=== PATIENT | male | born 1950 | race Caucasian/White ===

== ENCOUNTER 2022-04-29 14:39 | Emergency (ER) | payer OTHER, SELFPAY ==
[2022-04-29 14:45] VITALS: BP 138/73; PULSE 87; RESP 18; TEMP 36.8; O2SAT 98
--- NOTE | 2022-04-29 15:00 | DI.CT_ITS ---
Exam(s) CT ABDOMEN PELVIS W EXAM: CT ABDOMEN PELVIS W CLINICAL HISTORY: left lower abdomen pain. TECHNIQUE: Imaging Protocol: Axial computed tomography images with coronal and sagittal reformatted images were created and reviewed CONTRAST MATERIAL: Intravenous: Omnipaque 100cc Oral: None COMPARISON: CT ABD PELVIS WO CONTRAST from 08/24/2017 FINDINGS: VISUALIZED LUNG BASES: Mild increased markings. No confluent infiltrates and no pleural effusions.. ABDOMEN: There is no ascites in the upper abdomen. LIVER: There are no focal hepatic lesions evident . GALLBLADDER/BILIARY: No obvious gallbladder pathology. CBD is not dilated. PANCREAS: No evidence of pancreatic mass nor dilatation of the pancreatic duct. SPLEEN: Spleen is not enlarged. No obvious intrasplenic lesions. Splenic and portal veins are paten t. ADRENALS: There is nodular density at the genu of the left adrenal gland which measures 2 by 1.3 cm, most probably benign adenoma as it appears unchanged from prior CT scan of 2018. The opposite-right adrenal gland remains unremarkable. KIDNEYS:Bilateral benign cysts in both kidneys are again noted and the largest cyst is again noted to be in the inferior pole the left kidney, measuring 5.7 x 5.6 cm. The largest cyst in the right kidn ey is in the superior pole and measures 3.3 x 3.3 cm. There are no solid renal masses. No calculi. No hydronephrosis nor hydroureter. ABDOMINAL AORTA: Calcified but not enlarged. LYMPH NODES:There is no retroperitoneal nor paraaortic adenopathy. ABDOMINAL WALL: No evidence of significant anterior abdominal wall nor inguinal hernia. GI: There is circumferential edema thickening of the colon wall at and distal to the splenic flexure. There also multiple diverticuli in the descending colon and extensive diverticulosis of the sigmoid is again noted. There is some streaking around some of the diverticuli although there is also some streaking around the entire involved left side of the colon. Small amount of fluid noted in the pelv ic mesentery and dependent aspect of the pelvis. PELVIS: GI: Appendix is difficult to identify. No obvious acute appendicitis. LYMPH NODES: There is no intrapelvic nor inguinal adenopathy. REPRODUCTIVE: Enlarged prostate gland which exhibits diameter 5 cm. URINARY BLADDER: Not distended. Thickened wall which is probably related to under distension. OSSEOUS: No significant osseous lesions. IMPRESSION: 1. Compared to the prior CT scan of August 2017 there is diverticulosis of the entire left side of the colon again noted, most extensive in the sigmoid. However, on the present study there is also ci rcumferential thickening of the colon wall at and distal to the splenic flexure consistent with eleme nt of colitis and there is streaking around the entire length of the colon and AC well as around some the diverticuli. Probably a combination of colitis and diverticulitis. There is small amount of fr ee fluid in the dependent pelvis which is probably related to the above findings but there does not a ppear to be a formed abscess. Also no air within the portal venous system. 2. Multiple benign cysts in both kidneys. No solid renal masses. No calculi. 3. Left adrenal nodule, unchanged from 2018 and probably a benign adenoma. 4. Other findings as above. Discussed with ER physician. RADIATION DOSE DELIVERED: 761.22mGy.cm Total DLP DATA REPOSITORY: All CT scans at this facility are submitted to the National Radiology Data Registry (NRDR) Dose Index Registry (DIR) with the [employer] ([employer]). RADIATION OPTIMIZATION: All CT scans at this facility use at least one of these dose optimization te chniques: automated exposure control; mA and/or kV adjustment per patient size (includes targeted exa ms where dose is matched to clinical indication); or iterative reconstruction.
--- NOTE | 2022-04-29 15:10 | W.ED.GENAD ---
Discharge Plan Disposition Patient Disposition: HOME Condition: Stable Discharge Details Clinical Impression: Diverticulitis Primary Care Provider: [facility] Provider: Chinmay Gee Home Meds and New Rx's Prescriptions: New metronidazole 500 mg tablet 500 mg PO Q8H Qty: 21 0RF ciprofloxacin HCl 500 mg tablet 500 mg PO BID Qty: 14 0RF Continued atorvastatin [Lipitor] 80 MG tablet 80 mg PO DAILY clopidogrel [Plavix] 75 MG tablet 75 mg PO DAILY amlodipine 5 MG tablet 5 mg PO DAILY metformin 500 MG tablet extended release 24 hr 500 mg PO DAILY omeprazole magnesium [Prilosec OTC] 20 MG tablet,delayed release (DR/EC) 20 mg PO DAILY cholecalciferol (vitamin D3) [Vitamin D3] 2,000 UNIT tablet 2,000 unit PO DAILY aspirin 325 MG tablet 325 mg PO PRN tamsulosin 0.4 MG capsule 0.4 mg PO DAILY@0830 Qty: 5 0RF promethazine 25 MG tablet 25 mg PO Q6H PRN (Reason: Nausea) Qty: 10 0RF Discontinued ciprofloxacin HCl 500 MG tablet 500 mg PO BID Qty: 6 0RF Discharge Instructions Instructions: Diverticulitis (ED) Additional Instructions: if pain continues in a week follow up with your primary care provider or express care if you have severe worsening pain, fevers or feel more ill return to the emergency department Medical Decision Making 71 yo male with hx of kidney stones who has had lower left abdominal pain and intermittent right lower abdomen pain since monday night. He denies urinary symptoms, bloody stools, fevers, chills, n/v. He can't think of anything that makes the pain better or worse. He arrives stable speaking clearly in no distress. He has a soft nondistended abdomen with tenderness only in the llq without guarding or rebound. Suspect diverticulitis, will obtain cbc, cmp, lipase and obtain ct to further evaluate labs show wbc over 20, ct shows diverticulitis and colitis. Also is nitrite positive on urine and still denies urinary symptoms. He is stable, states pain is better with toradol and has mild tenderness with llq deep palpation. Discussed with pt and given reassuring exam and that he feels better will trial oral antibiotics with cipro and flagyl. He was given return precautions and will f/u with his pcp Differential Diagnosis Differential Diagnosis: diverticulitis, kidney stone Imaging Data Radiologic Study: Attestation: I personally reviewed and interpreted this imaging study as follows: Imaging: CT Scan Radiologist's impression: MPRESSION: 1. Compared to the prior CT scan of August 2017 there is diverticulosis of the entire left side of the colon again noted, most extensive in the sigmoid.? However, on the present study there is also circumferential thickening of the colon wall at and distal to the splenic flexure consistent with element of colitis and there is streaking around the entire length of the colon and AC well as around some the diverticuli.? Probably a combination of colitis and diverticulitis.? There is small amount of free fluid in the dependent pelvis which is probably related to the above findings but there does not appear to be a formed abscess.? Also no air within the portal venous system. 2. Multiple benign cysts in both kidneys.? No solid renal masses.? No calculi. 3. Left adrenal nodule, unchanged from 2018 and probably a benign adenoma. Lab Data Lab results reviewed: Yes I reviewed the patient's lab results. HPI General Mode of arrival: ambulatory. Date/Time Provider Initiated Documentation: 04/29/22 14:52. Limitations to Documentation: no limitations. Information obtained by: patient. History of Present Illness 71 year old M presents to the emergency department with the chief complaint of lower abdomen pain, described as moderate, Quality is described as sharp, and is localized to the abdomen. Patient reports no radiation. Patient started experiencing this day(s) (2) and it has been constant. No relieving factors improve symptom(s), No exacerbating factors reported . Patient notes no other symptoms.. Patient did receive the following treatments prior to arrival, none Related Data Home Medications Medication Instructions Recorded Confirmed amlodipine 5 mg tablet 5 mg PO DAILY 08/24/17 04/29/22 aspirin 325 mg tablet 325 mg PO PRN 08/24/17 atorvastatin 80 mg tablet (Lipitor) 80 mg PO DAILY 08/24/17 04/29/22 cholecalciferol (vitamin D3) 50 2,000 unit PO DAILY 08/24/17 04/29/22 mcg (2,000 unit) tablet (Vitamin D3) clopidogrel 75 mg tablet (Plavix) 75 mg PO DAILY 08/24/17 04/29/22 metformin 500 mg tablet,extended 500 mg PO DAILY 08/24/17 04/29/22 release 24 hr omeprazole magnesium 20 mg 20 mg PO DAILY 08/24/17 04/29/22 tablet,delayed release (Prilosec OTC) promethazine 25 mg tablet 25 mg PO Q6H PRN Nausea #10 tabs 08/24/17 04/29/22 tamsulosin 0.4 mg capsule 0.4 mg PO DAILY@0830 ##5 08/24/17 04/29/22 ciprofloxacin HCl 500 mg tablet 500 mg PO BID #14 tabs 04/29/22 metronidazole 500 mg tablet 500 mg PO Q8H #21 tabs 04/29/22 Previous Rx's Medication Instructions Recorded promethazine 25 mg tablet 25 mg PO Q6H PRN Nausea #10 tabs 08/24/17 tamsulosin 0.4 mg capsule 0.4 mg PO DAILY@0830 ##5 08/24/17 ciprofloxacin HCl 500 mg tablet 500 mg PO BID #14 tabs 04/29/22 metronidazole 500 mg tablet 500 mg PO Q8H #21 tabs 04/29/22 Allergies Allergy/AdvReac Type Severity Reaction Status Date / Time prednisone Allergy Intermediate Skin Rash Unverified 04/29/22 15:24 General Stated Complaint: Abd Prob GARY: 3 Review of Systems All systems reviewed & are unremarkable except as noted in HPI and below Constitutional Constitutional: Denies chills, Denies fever(s) and Denies weakness Cardiovascular Cardiovascular: Denies chest pain and Denies dyspnea Respiratory Respiratory: Denies cough and Denies dyspnea Gastrointestinal Gastrointestinal: Denies vomiting Integumentary/Breasts Skin/Breast: Denies rash Neurologic Neurologic: Denies weakness PFSH All Active Problems (Updated 04/29/22 @ 17:07 by Chinmay Gee MD) Diverticulitis (Chronic) Social History Smoking/Tobacco Use Status: Never Smoking risk assessment performed?: Yes Alcohol Intake: never Drug use: Never Substance use type: does not use Do you feel safe at home: Yes Do you feel safe in your relationship?: Yes Exam Const General: no acute distress Orientation: alert [facility] Head: normal to inspection Ears: external ears normal General nose exam: external nose normal Mouth: moist mucous membranes Eyes General: appearance normal, both eyes and all related structures Neck Neck: normal visual inspection Resp Effort & Inspection: normal respiratory effort and able to speak in complete sentences Cardio Rate: regular rate GI Palpation: soft and tender Skin General skin exam: no rashes or lesions noted Neuro General: patient alert and patient oriented x3 Extrem General: normal to inspection Psych Mental Status: mental status grossly normal Course Vital Signs Vital signs: Vital Signs Temperature 36.8 C 04/29/22 14:45 Pulse 87 04/29/22 14:45 Respiratory Rate 18 04/29/22 14:45 Blood Pressure 138/73 04/29/22 14:45 Pulse Oximetry 98 04/29/22 14:45 Temperature 36.8 C 04/29/22 14:45 Temperature Source Temporal Artery Scan 04/29/22 14:45 Pulse 87 04/29/22 14:45 Respiratory Rate 18 04/29/22 14:45 Respiratory Effort Non-Labored 04/29/22 14:50 Blood Pressure 138/73 04/29/22 14:45 Blood Pressure Position Sitting 04/29/22 14:45 Pulse Oximetry 98 04/29/22 14:45 Oxygen Delivery Method Room Air 04/29/22 14:45 Oxygen Flow Rate 0 04/29/22 14:45 Pain Level 4 04/29/22 14:45
[2022-04-29 15:32] LABS: Abs Immature Grans 0.15 10^3/uL (0.0-0.06); Basophils % 0.1; HCT 44.4 % (40.0-50.0); HGB 15.4 g/dL (13.5-17.5); Immature Grans % 0.7; Lymphocytes % 4.6; MCH 34.1 pg (27.0-33.0); MCHC 34.7 % (32.0-36.0); MCV 98 fL (80-95); MPV 11.5 fL (8.0-11.0); Monocytes % 7.2; Neutrophils % 87.4; Platelet Count 164 10^3/uL (130-400); RBC 4.51 10^6/uL (4.36-5.78); RDW 11.6 % (11.8-14.1); RDW-SD 41.9 fL; WBC 22.92 10^3/uL (4.4-10.8)
[2022-04-29 15:33] LABS: Absolute Basophil Count 0.02 10^3/uL (0.0-0.2); Absolute Lymphocyte Count 1.05 10^3/uL (1.2-3.4); Absolute Monocyte Count 1.65 10^3/uL (0.1-0.8); Absolute Neutrophil Count 20.03 10^3/uL (1.2-6.7)
[2022-04-29] MEDS: Normal Saline 1,000 ML 1000 ML IV (15:41)
[2022-04-29] MEDS: Ketorolac 15 MG/ML VIAL IVP (15:41)
[2022-04-29 15:43] LABS: Bilirubin Small (Negative); Blood Negative (Negative); Clarity Clear (Clear); Glucose Negative (Negative); Ketones Trace mg/dL (Negative); Leukocyte Esterase Negative (Negative); Nitrite Positive (Negative); Specific Gravity >= 1.030 (1.005-1.025); Urobilinogen 0.2 EU/dL (Up TO 0.2); pH 5.5 (5-8)
[2022-04-29 15:49] LABS: ALT 18 U/L (16-63); AST 22 U/L (15-37); Albumin 3.7 g/dL (3.4-5.0); Alkaline Phosphatase 69 U/L (46-116); Anion Gap 11.1 mmol/L (3-11); BUN 24 mg/dL (7-18); CO2 26.9 mmol/L (21.0-32.0); CREATININE 1.4 mg/dL (0.70-1.30); Calcium 9.1 mg/dL (8.5-10.1); Chloride 102 mmol/L (98-107); Estimated GFR 53.74 (mL/min/1.73m2); Glucose 204 mg/dL (74-106); Lipase 70 U/L (73-393); Potassium 3.8 mmol/L (3.5-5.1); Sodium 140 mmol/L (136-145)
[2022-04-29 15:54] LABS: Bacteria Few HPF (Negative); Crystals Negative HPF (Negative); Epithelial Cells Rare HPF (Negative); Mucus Heavy (Negative)
[2022-04-29 15:55] LABS: C & S Indicated? Yes
[2022-04-29 16:06] LABS: Diff Comment Agrees w/ Instrument; RBC Morphology Normal
[2022-04-29] MEDS: Omnipaque 350 MG/ML 500 ML BTL-Imaging package IJ (16:27)
[2022-04-29] MEDS: Normal Saline Flush 10 ML SYR IVP (16:27)
[2022-04-29] MEDS: Ciprofloxacin 500 MG TAB PO (17:28)
[2022-04-29] MEDS: metroNIDAZOLE 500 MG TAB PO (17:28)
== END 2022-04-29 17:30 | disposition home or self-care (01) ==
PROVIDERS: Emergency Provider Emergency Medicine
DX: K57.32 Diverticulitis of large intestine without perforation or abscess without bleeding (principal); K52.9 Noninfective gastroenteritis and colitis, unspecified; R82.998 Other abnormal findings in urine
CPT/HCPCS: 36415; 80053; 83690; 96361; 96374; 99285; 74177; 81003; 81015; 85025; 87086; 99284; J1885